=== PATIENT | female | born 1960 | race Two or more races ===

== ENCOUNTER 2017-12-11 08:39 | Emergency (ER) | payer MEDICAID ==
[~2017-12-11] VITALS: Ht 162.6 cm; Wt 56.7 kg
[2017-12-11 08:44] VITALS: BP 150/103
== END 2017-12-11 09:47 | disposition left against medical advice (07) ==
LOC: ER 08:39
DX: J02.9 Acute pharyngitis, unspecified (principal); E78.5 Hyperlipidemia, unspecified; Z53.29 Procedure and treatment not carried out because of patient's decision for other reasons

== ENCOUNTER 2018-12-26 19:05 | Emergency (ER) | payer MEDICAID ==
[~2018-12-26] VITALS: Ht 154.9 cm; Wt 63.5 kg
[2018-12-26 19:16] VITALS: BP 162/99
== END 2018-12-26 23:43 | disposition home or self-care (01) ==
LOC: ER 19:05
DX: R07.0 Pain in throat (principal); E78.5 Hyperlipidemia, unspecified; H92.01 Otalgia, right ear; Z98.51 Tubal ligation status
CPT/HCPCS: 70490

== ENCOUNTER 2019-09-28 15:31 | Emergency (ER) | payer MEDICAID ==
[~2019-09-28] VITALS: Ht 157.5 cm; Wt 55.8 kg
[2019-09-28 15:35] VITALS: BP 126/72
[2019-09-28 17:19] LABS: Basophils # (auto) 0 uL; Basophils % (auto) 0.8 % (0.0-2.0); Eosinophils # (auto) 0.1 uL; Eosinophils % (auto) 3.5 % (0.0-7.0); Hematocrit 38.7 % (36.0-46.0); Hemoglobin 13.1 g/dL (12.2-16.2); Lymphocytes # (auto) 1.5 uL; Lymphocytes % (auto) 36.8 % (10.0-50.0); Mean Corpuscular Hemoglobin 30.8 pg (28.0-32.0); Mean Corpuscular Hgb Conc. 33.7 g/dL (32.0-36.0); Mean Corpuscular Volume 91.4 fL (80.0-100.0); Monocytes # (auto) 0.3 uL; Monocytes % (auto) 7.7 % (0.0-12.0); Neutrophils # (auto) 2.1 uL; Neutrophils % (auto) 51.2 % (37.0-80.0); Nucleated Red Blood Cells % 0.1 %; Platelet Count (auto) 248 10^3/uL (140-450); Red Blood Cells 4.24 10^6/uL (4.0-5.20); Red Cell Distribution Width 13.4 % (11.8-14.3); White Blood Cell 4.1 10^3/uL (4.4-10.8)
[2019-09-28 17:36] LABS: Albumin 3.5 g/dL (3.4-5.0); BUN/Creatinine Ratio 14.1; Calcium 8.6 mg/dL (8.5-10.1); Potassium 4.2 mmol/L (3.5-5.1)
[2019-09-28 17:39] LABS: Bilirubin, Total 0.1 mg/dL (0.2-1.0); Total Protein 7.4 g/dL (6.4-8.2)
== END 2019-09-28 17:20 | disposition home or self-care (01) ==
LOC: ER 15:31
DX: K64.8 Other hemorrhoids (principal); E78.5 Hyperlipidemia, unspecified; Z98.51 Tubal ligation status
CPT/HCPCS: 36415; 80053; 85025

== ENCOUNTER 2020-04-17 05:50 | Emergency (ER) | payer MEDICAID ==
[~2020-04-17] VITALS: Ht 157.5 cm; Wt 68.0 kg
[2020-04-17 07:09] VITALS: BP 137/79
== END 2020-04-17 08:10 | disposition home or self-care (01) ==
LOC: ER 05:50
DX: B02.29 Other postherpetic nervous system involvement (principal); E78.5 Hyperlipidemia, unspecified; Z98.51 Tubal ligation status

== ENCOUNTER 2021-01-31 06:39 | Emergency (ER) | payer MEDICAID ==
[~2021-01-31] VITALS: Ht 154.9 cm; Wt 50.8 kg
[2021-01-31 07:22] VITALS: BP 141/79
== END 2021-01-31 07:37 | disposition home or self-care (01) ==
LOC: ER 06:39
DX: L03.011 Cellulitis of right finger (principal); E78.5 Hyperlipidemia, unspecified

== ENCOUNTER 2023-03-16 11:34 | Emergency (ER) | payer MEDICAID ==
[~2023-03-16] VITALS: Ht 152.4 cm; Wt 47.6 kg
[2023-03-16 12:27] VITALS: BP 128/74
[2023-03-16 12:57] LABS: Urine Bacteria NONE SEEN /hpf (None Seen); Urine Blood Negative /uL (Negative); Urine Specific Gravity 1.014 (1.001-1.035); Urine WBC <1 /hpf (0 - 5)
[2023-03-16] MEDS ORDERED: KETOROLAC TROMETH 60MG/2ML VIAL IM ONE (13:00)
[2023-03-16] MEDS ORDERED: MELO7.5T7 PO (13:16)
== END 2023-03-16 13:21 | disposition home or self-care (01) ==
LOC: ER 11:34
DX: M51.36 Other intervertebral disc degeneration, lumbar region (principal); E78.5 Hyperlipidemia, unspecified; Z98.51 Tubal ligation status; Z98.890 Other specified postprocedural states
CPT/HCPCS: 72100; 81001; 96372; 99284; J1885

== ENCOUNTER 2024-06-25 19:31 | Inpatient (IN) | payer MEDICAID ==
[~2024-06-25] VITALS: Ht 154.9 cm; Wt 47.1 kg
[~2024-06-25 19:31] MED LIST: MELO7.5T7 PO
[2024-06-25 21:16] LABS: Basophils # (auto) 0 10 ^3/uL (0-0.2); Basophils % (auto) 0.6 % (0.0-2.0); Eosinophils # (auto) 0.3 10 ^3/uL (0-0.8); Eosinophils % (auto) 5.4 % (0.0-7.0); Hematocrit 37.9 % (36.0-46.0); Hemoglobin 13.4 g/dL (12.2-16.2); Lymphocytes # (auto) 1.7 10 ^3/uL (0.4-5.4); Lymphocytes % (auto) 34.3 % (10.0-50.0); Mean Corpuscular Hemoglobin 33.3 pg (28.0-32.0); Mean Corpuscular Hgb Conc. 35.2 g/dL (32.0-36.0); Mean Corpuscular Volume 94.5 fL (80.0-100.0); Monocytes # (auto) 0.5 10 ^3/uL (0-1.3); Monocytes % (auto) 9.6 % (0.0-12.0); Neutrophils # (auto) 2.5 10 ^3/uL (1.6-8.6); Neutrophils % (auto) 50.1 % (37.0-80.0); Platelet Count (auto) 256 10^3/uL (140-450); Red Blood Cells 4.01 10^6/uL (4.0-5.20); Red Cell Distribution Width 13.4 % (11.8-14.3); White Blood Cell 4.9 10^3/uL (4.4-10.8)
[2024-06-25 21:35] LABS: Alanine Aminotransferase 22 U/L (7-40); Albumin 4.3 g/dL (3.2-4.8); Alkaline Phosphatase 108 U/L (46-116); Anion Gap 7 (5-15); Aspartate Aminotransferase 23 U/L (13-40); BUN/Creatinine Ratio 21.3 (10.0-20.0); Blood Urea Nitrogen 23 mg/dL (9-23); Calcium 9.7 mg/dL (8.7-10.4); Carbon Dioxide 29 mmol/L (20-31); Chloride 106 mmol/L (98-107); Glucose 100 mg/dL (74-106); Sodium 142 mmol/L (136-145)
[2024-06-25 21:36] LABS: Bilirubin, Total 0.3 mg/dL (0.2-1.0); Total Protein 7.3 g/dL (5.7-8.2)
[2024-06-25 21:51] LABS: Lipase 58 U/L (12-53)
[2024-06-25] MEDS: HYDROcodone-ACET 5/325MG TAB PO ONE (23:54)
[2024-06-26 01:04] LABS: Urine Bacteria None Seen /hpf (None Seen)
[2024-06-26 01:22] LABS: Urine Blood TRACE /uL (Negative); Urine Clarity Clear (Clear); Urine Color Light-Yellow (Yellow); Urine Protein, UAD Negative (Negative); Urine Specific Gravity 1.026 (1.001-1.035); Urine Urobilinogen Normal (Negative); Urine WBC 1 /hpf (0 - 5); Urine pH 5.5 (5.0-9.0)
[2024-06-26] MEDS ORDERED: MORPHINE SULFATE INJ 2 MG/ml SYRG IV PRN (02:00)
[2024-06-26] MEDS ORDERED: hydrALAZINE HCL 20 MG/ML VL IV PRN (02:00)
[2024-06-26] MEDS ORDERED: HYDROcodone-ACET 5/325MG TAB PO PRN (02:00)
[2024-06-26 06:10] VITALS: PULSE 73; O2SAT 97
[2024-06-26 06:42] LABS: INR 1.03 (0.9-1.15); Partial Thromboplastin Time 28.8 SEC (24.5-34.5); Prothrombin Time 10.9 sec (9.3-11.8)
[2024-06-26] MEDS ORDERED: ONDANSETRON HCL 4 MG/2 ML VIAL IV PRN (08:00)
[2024-06-26] MEDS: SODIUM CHLORIDE 0.9% 1,000 ML IV SCH (08:45)
[2024-06-26 09:02] VITALS: PULSE 79; RESP 11; O2SAT 100
[2024-06-26 10:06] LABS: Triglycerides 60 mg/dL (< 150)
[2024-06-26 10:07] LABS: LDL Cholesterol 131 mg/dL (< 100)
[2024-06-26 10:08] LABS: Cholesterol 208 mg/dL (< 200); HDL Cholesterol 69 mg/dL (40-59)
[2024-06-26 10:25] LABS: Amphetamine Screen, Urine Neg (NEGATIVE); Barbiturate Scree,Urine Neg (NEGATIVE); Benzodiazephine Screen, Urine Neg (NEGATIVE); Cocaine Screen, Urine Neg (NEGATIVE); Opiate Scree,Urine Neg (NEGATIVE)
[2024-06-26 10:26] LABS: Cannabinoid Screen, Urine Neg (NEGATIVE); Phencyclidine Screen, Urine Neg (NEGATIVE)
[2024-06-26 11:39] LABS: COVID19 ANTIGEN SOFIA FIA NEGATIVE (NEGATIVE); Rapid Influenza A Negative (Negative); Rapid Influenza B Negative (Negative)
[2024-06-26] MEDS: ACETAMINOPHEN 325 MG TAB PO PRN (12:00)
[2024-06-26] MEDS ORDERED: WITCH HAZEL-GLYCERIN PAD TOP PRN (13:30)
[2024-06-26 14:40] VITALS: RESP 18; O2SAT 96
[2024-06-26 17:00] VITALS: BP 123/72; PULSE 68; RESP 16; TEMP 98; O2SAT 99
[2024-06-26] MEDS: AZITHROMYCIN 500MG/ 250ML 250 ML IV SCH (18:01)
[2024-06-26 20:00] VITALS: PULSE 71; RESP 16; O2SAT 97
[2024-06-26 21:00] VITALS: BP 139/85; PULSE 82; RESP 20; TEMP 97.8; O2SAT 95
[2024-06-27 01:00] VITALS: BP 112/64; PULSE 71; RESP 16; TEMP 97.2; O2SAT 97
[2024-06-27 05:00] VITALS: BP 117/71; PULSE 69; RESP 16; TEMP 98.1; O2SAT 95
[2024-06-27 05:38] LABS: Basophils # (auto) 0 10 ^3/uL (0-0.2); Basophils % (auto) 0.5 % (0.0-2.0); Eosinophils # (auto) 0.3 10 ^3/uL (0-0.8); Eosinophils % (auto) 6.1 % (0.0-7.0); Hematocrit 36.8 % (36.0-46.0); Hemoglobin 13.1 g/dL (12.2-16.2); Lymphocytes # (auto) 1.7 10 ^3/uL (0.4-5.4); Lymphocytes % (auto) 31.5 % (10.0-50.0); Mean Corpuscular Hemoglobin 32.5 pg (28.0-32.0); Mean Corpuscular Hgb Conc. 35.6 g/dL (32.0-36.0); Mean Corpuscular Volume 91.3 fL (80.0-100.0); Monocytes # (auto) 0.4 10 ^3/uL (0-1.3); Monocytes % (auto) 8.4 % (0.0-12.0); Neutrophils # (auto) 2.8 10 ^3/uL (1.6-8.6); Neutrophils % (auto) 53.5 % (37.0-80.0); Nucleated Red Blood Cells % 0.1 %; Platelet Count (auto) 261 10^3/uL (140-450); Red Blood Cells 4.03 10^6/uL (4.0-5.20); Red Cell Distribution Width 13.3 % (11.8-14.3); White Blood Cell 5.3 10^3/uL (4.4-10.8)
[2024-06-27 06:10] LABS: Alanine Aminotransferase 15 U/L (7-40); Albumin 3.8 g/dL (3.2-4.8); Alkaline Phosphatase 107 U/L (46-116); Anion Gap 6 (5-15); Aspartate Aminotransferase 16 U/L (13-40); BUN/Creatinine Ratio 17.9 (10.0-20.0); Blood Urea Nitrogen 10 mg/dL (9-23); Calcium 9.5 mg/dL (8.7-10.4); Carbon Dioxide 28 mmol/L (20-31); Chloride 106 mmol/L (98-107); Glucose 75 mg/dL (74-106); Potassium 3.8 mmol/L (3.5-5.1); Sodium 140 mmol/L (136-145)
[2024-06-27 06:11] LABS: Bilirubin, Total 0.5 mg/dL (0.2-1.0); Total Protein 6.5 g/dL (5.7-8.2)
[2024-06-27 08:01] VITALS: O2SAT 97
[2024-06-27 08:51] VITALS: BP 122/72; PULSE 74; RESP 16; TEMP 98.2; O2SAT 95
[2024-06-27] MEDS: DOCUSATE SOD 100 MG CAP PO PRN (09:58)
[2024-06-27] MEDS ORDERED: TUCKS TOP (11:40)
[2024-06-27] MEDS ORDERED: LIDO5GEL EX (11:40)
[2024-06-27] MEDS ORDERED: DOXY100C4 PO (11:40)
[2024-06-27] MEDS ORDERED: POLY335015 PO (11:40)
[2024-06-27 13:31] VITALS: BP 125/71; PULSE 85; RESP 17; TEMP 98.1; O2SAT 96
== END 2024-06-27 17:45 | disposition home or self-care (01) | DRG 254 ==
LOC: ER 19:31 → OVERFLOW 23:53 → ER 23:53 → EAST 06-26 15:02
PROVIDERS: ADMIT Internal Medicine; ATTEND Internal Medicine
DX: K64.8 Other hemorrhoids (principal); N17.0 Acute kidney failure with tubular necrosis; J15.69 Pneumonia due to other Gram-negative bacteria; J15.9 Unspecified bacterial pneumonia; E78.5 Hyperlipidemia, unspecified; I10 Essential (primary) hypertension; K57.30 Diverticulosis of large intestine without perforation or abscess without bleeding; Z87.442 Personal history of urinary calculi; Z79.899 Other long term (current) drug therapy
CPT/HCPCS: 36415; 71045; 74176; 80053; 80061; 80307; 81001; 82306; 82607; 83036; 83605; 83690; 83735; 85025; 85610; 85730; 86850; 86900; 86901; 87426; 87804; G0378